=== PATIENT | female | born 1960 | race Caucasian/White ===

== ENCOUNTER → 2019-03-06 12:44 | Outpatient (CLI) | payer OTHER, SELFPAY ==
--- NOTE | 2019-03-06 12:45 | DI.MRI.S_ITS ---
PROCEDURE: MR LUMBAR SPINE WO CON INDICATIONS: Status post lumbar fusion with axial low back pain TECHNIQUE: Noncontrast sagittal T1 spin echo and T2 fast echo, sagittal STIR, axial T1 and T2 fast spin echo through the lumbar spine. In cases with scoliosis, additional coronal T2 fast spin echo may be performed. COMPARISON: [facility], CR, XR LUMBAR SPINE MIN 4V, 03/06/2019, 12:44. FINDINGS: Image quality: Excellent. Alignment and Curvature: There is mild L4-L5 anterolisthesis. There is mild L1-L2 and L2-L3 retrolisthesis. There is trace L3-L4 retrolisthesis. Bones: Postsurgical changes compatible with L4-L5 TLIF noted. No acute vertebral body compression fractures. Spinal Cord: Conus medullaris terminates at the T12-L1 disc level. Visualized cord demonstrates normal signal and size. Paraspinous Soft Tissues: No paravertebral masses. L1-L2: Loss of disc signal and slight loss of disc height. Moderate, diffuse disc bulge. Mild bilateral facet hypertrophy. Mild narrowing of the central canal. Mild right and moderate left neural foraminal narrowing. No neural compression. L2-L3: Loss of disc signal. Mild, diffuse disc bulge. Wkpj-dg-zmqegnal bilateral facet hypertrophy. Atwx-in-bfikapjy narrowing of the central canal. Moderate bilateral neural foraminal narrowing. No neural compression. L3-L4: Loss of disc signal. Mild, diffuse disc bulge. Moderate bilateral facet hypertrophy. Mild ligamentum flavum hypertrophy. Moderate narrowing of the central canal. Moderate to severe bilateral neural foraminal narrowing. No neural compression. L4-L5: Status post fusion. Moderate bilateral facet hypertrophy. Mild narrowing of the central canal. Mild to moderate bilateral neural foraminal narrowing. No neural compression. L5-S1: Loss of disc signal. Mild, diffuse disc bulge. Mild right and moderate left facet hypertrophy. Mild narrowing of the central canal. Moderate to severe right and mild left neural foraminal narrowing with slight compression of the exiting right L5 nerve root. IMPRESSION: 1. Status post L4-L5 TLIF. 2. Multilevel degenerative disease. 3. Multilevel facet arthropathy. 4. Moderate L3-L4 central canal narrowing. Mild to moderate L2-L3 central canal narrowing. Mild L1-L2, L4-L5 and L5-S1 central canal narrowing. 5. Moderate to severe bilateral L3-L4 neural foraminal narrowing. Moderate to severe right and mild left L5-S1 neural foraminal narrowing. Moderate bilateral L2-L3 neural foraminal narrowing. Mild right and moderate left L1-L2 neural foraminal narrowing. Mild to moderate bilateral L4-L5 neural foraminal narrowing. 6. Slight compression of the exiting right L5 nerve root secondary to right L5-S1 neuroforaminal narrowing. Dictated by: Amna Claire MD, PhD on 03/06/2019 at 15:30 Approved by: Amna Claire MD, PhD on 03/06/2019 at 15:37
--- NOTE | 2019-03-06 12:45 | DI.RAD.S_ITS ---
PROCEDURE: XR LUMBAR SPINE MIN 4V INDICATIONS: Status post lumbar fusion with axial low back pain TECHNIQUE: 5 views of the lumbar spine were acquired. COMPARISON: [facility], , L-SPINE 2-3 VIEWS, 05/03/2012, 9:28. FINDINGS: Bones: 5 nonrib-bearing vertebrae are present. There is normal bony alignment. No vertebral body compression fractures. No suspicious bony lesions. Prior unilateral left-sided L4-5 fusion procedure has been performed by transverse pedicle screws and vertical fixation rods, and interbody disc prosthesis device at L4-5. Soft tissues: Overlying bowel gas pattern is normal. No suspicious soft tissue calcifications. Oblique images: No pars defects. IMPRESSION: Normal postoperative alignment maintained after L4-L5 posterior unilateral fusion and interbody disc prosthesis placement. Dictated by: Addy Meier M.D. on 03/06/2019 at 13:24 Approved by: Addy Meier M.D. on 03/06/2019 at 13:25
== END ==
PROVIDERS: PCP Family Medicine; Visit Provider Physical Medicine & Rehabilitation
DX: M54.5 Low back pain (principal); M47.27 Other spondylosis with radiculopathy, lumbosacral region; M47.26 Other spondylosis with radiculopathy, lumbar region; M51.16 Intervertebral disc disorders with radiculopathy, lumbar region; M51.17 Intervertebral disc disorders with radiculopathy, lumbosacral region; M48.061 Spinal stenosis, lumbar region without neurogenic claudication; M48.07 Spinal stenosis, lumbosacral region; Z98.1 Arthrodesis status
CPT/HCPCS: 72110; 72148

== ENCOUNTER → 2023-06-12 12:20 | Outpatient (CLI) | payer BC, SELFPAY ==
--- NOTE | 2023-06-12 | DI.RAD.S_ITS ---
PROCEDURE: XR LUMBAR SPINE 6V W BENDING INDICATIONS: LUMBER PAIN TECHNIQUE: 5 views of the lumbar spine acquired, including flexion and extension views. COMPARISON: [facility], , XR LUMBAR SPINE MIN 4V, 03/06/2019, 12:44. FINDINGS: Bones: 5 nonrib-bearing vertebrae are present. Unilateral left-sided L4-5 posterior fusion hardware with transpedicular screws and interbody disc spacer is intact with no perihardware lucency to suggest hardware loosening. Slightly increased dextroconvex curvature with Casas angle of approximately 7.5. No vertebral body compression fractures. Moderate multilevel degenerative changes with osteophytosis, disc height loss and facet arthropathy. o suspicious bony lesions. Soft tissues: Overlying bowel gas pattern is normal. No suspicious soft tissue calcifications. Flexion/extension: There is limited range of motion, with preserved alignment. IMPRESSION: Unilateral left-sided L4-5 posterior fusion hardware and interbody disc spacer is intact without complication. Slightly increased dextroconvex curvature compared to March 06, 2019. Dictated by: Simone Jenkins M.D. on 06/12/2023 at 19:28 Approved by: Simone Jenkins M.D. on 06/12/2023 at 19:47
== END ==
PROVIDERS: PCP Family Medicine; Referring Provider Pain Medicine Pain Medicine; Visit Provider Pain Medicine Pain Medicine
DX: M96.1 Postlaminectomy syndrome, not elsewhere classified (principal); M47.816 Spondylosis without myelopathy or radiculopathy, lumbar region; Z98.1 Arthrodesis status
CPT/HCPCS: 72114